=== PATIENT | female | born 1950 | race Hispanic/Latino ===

== ENCOUNTER 2018-10-09 00:09 | Emergency (ER) | payer OTHER, MEDICARE ==
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
[2018-10-09 03:43] VITALS: BP 131/78; PULSE 63; RESP 16; TEMP 97.8
[2018-10-09 05:18] VITALS: O2SAT 99
[2018-10-09] MEDS ORDERED: Tdap Vaccine 0.5 ml Vial (10-64 yrs) IM ONE (07:39)
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
--- NOTE | 2018-10-09 11:12 | CT ---
Date of service: 10/09/2018 PROCEDURE: CT Cervical Spine without contrast HISTORY: Head injury. LOC. COMPARISON: None available. TECHNIQUE: Axial computed tomography images were obtained of the cervical spine without the use of intravenous contrast. Coronal and sagittal reformatted images were created and reviewed. Radiation dose: Total exam DLP = 1047.87 mGy-cm. This CT exam was performed using one or more of the following dose reduction techniques: Automated exposure control, adjustment of the mA and/or kV according to patient size, and/or use of iterative reconstruction technique. FINDINGS: VERTEBRAE: No acute compression fractures nor retropulsed fragments. Vertebral bodies exhibit normal stature. There is mild kyphotic angulation deformity centered at the C5-C6 level with straightening of the normal cervical lordosis above and below this level. Minimal anterior subluxation C3 over C4. The remaining vertebral bodies otherwise exhibit normal alignment. Facets normally aligned. DISCS/SPINAL CANAL/NEURAL FORAMINA: Mild multilevel degenerative spondylosis. At the C5-C6 level, there is disc space narrowing with endplate eburnation and prominent anterior osteophyte formation. There is a small asymmetric osteophytic ridge asymmetrically larger on the right than the left and contiguous with hypertrophic uncovertebral joints again more so on the right side. The facets also mildly hypertrophic. There is mild irregular compressive effects on the ventral surface of the thecal sac more so on the right side. Right exit foramen is marginal to minimally narrowed. Left exit foramen adequate. At the C4-C5 level, there is minor disc space narrowing. Minimal degenerative squaring of the uncovertebral joints. The left facet is quite hypertrophic. Right facet is slightly overgrown. Central canal appears adequate however there left-sided foraminal stenosis. Right exit foramen is marginal to minimally narrowed. At the C3-C4 level, there is also mild disc space narrowing. No disc herniation or significant disc bulge. Mild degenerative squaring of the uncovertebral joints right greater than left. The facets are hypertrophic with mild bilateral foraminal stenosis right greater than left. At the C2-C3 level, there is adequate disc height. No disc herniation or significant disc bulge. The uncovertebral joints exhibit slight degenerative squaring. Facets are mild to moderately hypertrophic. Exit foramina adequate. PARASPINAL SOFT TISSUES: Paraspinal soft tissues unremarkable. OTHER FINDINGS: None. IMPRESSION: No acute fractures. Multilevel degenerative spondylosis most notably affecting the C5-C6 level. The remaining levels exhibit varying degrees of bilateral foraminal stenosis.
== END 2018-10-09 03:43 | disposition left against medical advice (07) ==
LOC: H.ER 00:09
DX: S09.90XA Unspecified injury of head, initial encounter (principal); X58.XXXA Exposure to other specified factors, initial encounter